=== PATIENT | female | born 1985 | race Caucasian/White ===

== ENCOUNTER 2020-06-18 13:02 | Emergency (ER) | payer BC ==
[~2020-06-18] VITALS: Ht 162.6 cm; Wt 56.7 kg
[2020-06-18 13:17] VITALS: BP_SYST 117
[2020-06-18] MEDS ORDERED: LIDOCAINE TOPICAL OINT 5%, 35 GM TP PRN (14:45)
[2020-06-18 15:10] VITALS: BP_SYST 121
[2020-06-18] MEDS: HYDROcodone/ACETAMIN 7.5-325 MG TAB PO ONE (15:22)
[2020-06-18] MEDS: LIDOCAINE TOPICAL OINT 5%, 35 GM TP PRN (15:23)
== END 2020-06-18 15:28 | disposition home or self-care (01) ==
LOC: SED 13:02
DX: S46.812A Strain of other muscles, fascia and tendons at shoulder and upper arm level, left arm, initial encounter (principal); X50.3XXA Overexertion from repetitive movements, initial encounter; Y93.89 Activity, other specified; Y92.89 Other specified places as the place of occurrence of the external cause; Y99.8 Other external cause status
CPT/HCPCS: 99283